=== PATIENT | female | born 1965 | race Two or more races ===

== ENCOUNTER 2020-08-23 10:07 | Emergency (ER) | payer SELFPAY ==
[~2020-08-23] VITALS: Ht 152.4 cm; Wt 65.0 kg
[2020-08-23] MEDS ORDERED: LORazepam 1MG TABLET ONE (11:02)
[2020-08-23 11:18] LABS: BASOPHILS % (AUTO) 1 % (0-1); EOSINOPHILS % (AUTO) 0 % (1-7); LYMPHOCYTES % (AUTO) 19 % (22-44); MEAN CORPUSCULAR HEMOGLOBIN 32.6 pg (27.0-34.8); MEAN CORPUSCULAR HGB CONC 34.6 g/dL (32.4-35.8); MEAN PLATELET VOLUME 6.7 fL (7.4-10.4); MONOCYTES % (AUTO) 4 % (2-9); NEUTROPHILS % (AUTO) 76 % (42-75); PLATELET COUNT 369 x10^3/uL (130-400); RED BLOOD COUNT 4.15 x10^6/uL (3.82-5.3); RED CELL DISTRIBUTION WIDTH 13.2 % (9.6-15.2)
[2020-08-23 11:22] LABS: MD NO
[2020-08-23] MEDS ORDERED: LORazepam 1MG TABLET PO ONE (11:30)
[2020-08-23 11:31] LABS: ALBUMIN 4.2 g/dL (3.4-5.0); ANION GAP 7 mmol/L (5-15); CALCIUM 10.1 mg/dL (8.5-10.1); CHLORIDE 102 mmol/L (98-107)
[2020-08-23 11:35] LABS: ALANINE AMINOTRANSFERASE 27 U/L (12-78); ALKALINE PHOSPHATASE 143 U/L (45-117); BILIRUBIN,TOTAL 0.7 mg/dL (0.2-1.0); CREATININE 0.67 mg/dL (0.55-1.02); TOTAL PROTEIN 8.1 g/dL (6.4-8.2)
[2020-08-23 12:06] LABS: AMPHETAMINE SCREEN, URINE Positive (Negative); BARBITURATE SCREEN, URINE Negative (Negative); BENZODIAZEPINE SCREEN, URINE Negative (Negative); CANNABINOID SCREEN, URINE Negative (Negative); COCAINE SCREEN, URINE Negative (Negative); METHADONE SCREEN, URINE Negative (Negative); OPIATE SCREEN, URINE Negative (Negative)
[2020-08-23 12:35] VITALS: BP 126/66
== END 2020-08-23 12:39 | disposition home or self-care (01) ==
LOC: ED 10:42
DX: F15.922 Other stimulant use, unspecified with intoxication with perceptual disturbance (principal); F15.921 Other stimulant use, unspecified with intoxication delirium
CPT/HCPCS: 36415; 80053; 80307; 80320; 85025; 99283; G0480